=== PATIENT | male | born 1985 | race Caucasian/White ===

== ENCOUNTER → 2018-11-12 | Outpatient (CLI) | payer OTHER ==
--- NOTE | 2018-11-21 00:36 | ECWPNPC ---
PATIENT NAME: ALLY MATTSON : 1985 GENDER: MALE VISIT DATE: 11/12/2018 DISCHARGE DATE: 11/12/18 1549 VISIT LOCKED DATE TIME: PHYSICIAN: STEPHANI HAYS MD RESOURCE: STEPHANI HAYS MD REASON FOR APPOINTMENT 1. ABD/R GROIN HISTORY OF PRESENT ILLNESS PAIN SCREENING: PATIENT HAS A COMPLAINT OF ACUTE OR CHRONIC PAIN :YES 33 YEAR OLD MALE PATIENT WITH A HISTORY OF CHRONIC RIGHT INGUINAL PAIN. THE PATIENT DESCRIBES THE PAIN TENDER, SHARP, STABBING, SHOOTING, AND CONTINUOUS WITH A PAIN SCORE OF 4-10/10 DEPENDING ON PHYSICAL ACTIVITY. THE PATIENT SAYS THAT HE HAS HAD THIS PAIN FOR MANY YEARS. THE PATIENT SAYS HE HAS RECEIVED INJECTIONS IN THE PAST THAT HAVE GIVEN SEVERAL MONTHS OF GOOD PAIN RELIEF. THE PATIENT SAYS THAT ANY KIND OF STRENUOUS ACTIVITY CAUSES HIS PAIN TO WORSEN. PATIENT DENIES UNEXPLAINABLE WEIGHT LOSS, FEVER, CHILLS, NEW CHANGES ON HIS URINARY OR BOWEL CONTROL. FALL RISK SCREENING: SCREENING :NO FALLS REPORTED IN THE LAST YEAR CURRENT MEDICATIONS TAKING ALEVE 220 MG TABLET 2 TABLET WITH FOOD OR MILK NEEDED ORALLY EVERY 12 HRS TAKING IBUPROFEN 200 MG TABLET 1 TABLET WITH FOOD OR MILK NEEDED ORALLY THREE TIMES A DAY MEDICATION LIST REVIEWED AND RECONCILED WITH THE PATIENT PAST MEDICAL HISTORY ABD AND RIGHT GROIN PAIN ALLERGIES N.K.D.A. SURGICAL HISTORY DENIES PAST SURGICAL HISTORY FAMILY HISTORY FATHER: ALIVE, PROSTATE CANCER MOTHER: ALIVE, HEALTHY SIBLINGS: ALIVE, SISTER-HEALTHY 2DAUGHTER(S) - HEALTHY. SOCIAL HISTORY GENERAL: TOBACCO USE ARE YOU A:FORMER SMOKER HOW LONG HAS IT BEEN SINCE YOU LAST SMOKED?1-5 YEARS OTHERS AT HOME: SPOUSE, CHILDREN. EDUCATION LEVEL OF EDUCATION:NOT FINISHED COLLEGE DIET: REGULAR. LANGUAGE LANGUAGES SPOKEN:ETHIOPIAN DOMESTIC VIOLENCE DO YOU FEEL SAFE IN YOUR ENVIRONMENT?YES NEW PATIENT PAIN DIARY PATIENT DESCRIBES PAIN :HAVE IT ALL THE TIME, SHARP, STABBING, TENDER, SHOOTING HAS DULL PAIN ALL THE TIME BUT THE INTENSITY CHANGES THROUGH OUT THE DAY FROM 0-10, WHAT LEVEL IS YOUR PAIN TODAY?1 PRECIPITATING FACTORS HIKING WITH WT BEARING, RUNNING AND SOMETIMES WALKING OR ANYTHING THAT INVOLVES WEIGHTS. COUGHING OR SNEEZING ALLEVIATING FACTORS REST IMPACT ON FUNCTION SLOWS HIM DOWN AND SOMETIMES UNABLE TO DO THINGS THAT HE WANT TO, LIKE GO FOR A RUN RECREATIONAL DRUG USE DRUG USE?NO EXERCISE: VARITY-RUNNING, WALKING, HIKING. LEARNING BARRIERS / SPECIAL NEEDS BARRIERS TO LEARNING?NO HEARING IMPAIRED?NO VISION IMPAIRED?NO COGNITIVELY IMPAIRED?NO READINESS TO LEARN?YES LEARNING PREFERENCES?YES :TAPES/VIDEOS, DEMONSTRATION/VERBAL INSTRUCTION LEARNING CAPABILITIES PRESENT?YES EMOTIONAL BARRIERS?NO SPECIAL DEVICES?NO INSPECTOR PAWNSHOP DETAIL NEEDED?NO PAIN CLINIC PFS, CLERGY, PUBLIC HEALTH REFERRALS HAS THE PATIENT BEEN EDUCATED REGARDING HIS/HER PLAN OF CARE?YES HAS THE PATIENT BEEN EDUCATED REGARDING PAIN, THE RISK FOR PAIN, THE IMPORTANCE OF EFFECTIVE PAIN MANAGEMENT, AND THE PAIN ASSESSMENT PROCESS?YES LATEX QUESTIONNAIRE LATEX ALLERGY : HAVE YOU EVER DEVELOPED ANY TYPE OF REACTION AFTER HANDLING LATEX PRODUCTS SUCH RUBBER GLOVES, CONDOMS, DIAPHRAGMS, BALLOONS, SOCKS, OR UNDERWEAR?NO LATEX ALLERGY : HAVE YOU EVER DEVELOPED ANY TYPE OF REACTION DURING OR AFTER DENTAL APPOINTMENT, VAGINAL/RECTAL EXAMINATION, SURGICAL PROCEDURE, OR ANY OTHER EXPOSURE?NO LATEX RISK : HAVE YOU EVER HAD ANY DIFFICULTY BREATHING OR HIVES AFTER EATING OR HANDLING ANY FRUITS, OR VEGETABLES; SUCH KIWI, BANANAS, STONE FRUITS, OR CHESTNUTSNO LATEX RISK : DO YOU HAVE A PREVIOUS PERSONAL HISTORY OF MORE THAN NINE SURGERIES, SPINA BIFIDA, OR REPEATED CATHERTIZATIONS? NO LATEX RISK : ARE YOU FREQUENTLY EXPOSED TO LATEX PRODUCTS IN YOUR OCCUPATION?NO DATE ASKED : 11/12/2018 CAFFEINE CAFFEINE USE?YES HOW OFTEN AND HOW MUCH? 3-[address] LAUREANO/DAY. HAS BEEN TRYING TO CUT THE SUGAR OUT SO HASN'T HAD ANY FOR THE PAST 1- 1 1/2 WEEKS ADVANCE DIRECTIVE ADVANCE DIRECTIVE DISCUSSED WITH PATIENT:YES 11/12/18 PT. STATES HE HAS A LIVING WILL. HE DECLINES INFORMATION ON HCP AT THIS TIME. TAOIST [id number] MANDAEN MARITAL STATUS: . ALCOHOL SCREENING DID YOU HAVE A DRINK CONTAINING ALCOHOL IN THE PAST YEAR?NO POINTS0 INTERPRETATIONNEGATIVE OCCUPATION: ACTIVE . HOSPITALIZATION/MAJOR DIAGNOSTIC PROCEDURE DENIES PAST HOSPITALIZATION REVIEW OF SYSTEMS REVIEWED BY: PROVIDER: STEPHANI HAYS MD . CONSTITUTIONAL: ANY CHANGE IN YOUR MEDICAL CONDITION? NO . CHILLS NO . FEVER NO . INFECTION: DO YOU HAVE NEW INFECTIONS? NO . DO YOU HAVE HISTORY OF MRSA? NO . MUSCULOSKELETAL: ANY NEW PATTERNS OF PAIN OR NUMBNESS? YES, FROM WHEN IT INITIATED IN AUGUST IT HAS INCREASED AND IN THE PAST WEEK IT HAS DECREASED. . SYTEMIC LUPUS NO . GASTROENTEROLOGY: ANY NEW CHANGE IN BOWEL CONTROL? NO . BARRETTS ESOPHAGUS NO . CIRRHOSIS NO . HEPATITIS NO . LIVER FAILURE NO . ACID REFLUX NO NOT OFFICIALLY DIAGNOSED BUT DEPENDING ON WHAT HE EATS HE MAY HAVE PROBLEMS . UNEXPLAINED WEIGHT LOSS NO . GENITOURINARY: ANY NEW CHANGE IN BLADDER CONTROL? NO . IS THERE A CHANCE YOU COULD BE ? NO . HEMATOLOGY/LYMPH: DO YOU TAKE ANY BLOOD THINNERS? (FOR EXAMPLE- COUMADIN, PLAVIX, AGGRENOX, PLATEL, PRADAXA, OR XARELTO) NO . WHEN WAS YOUR LAST DOSE? DATE: TIME: . LOW PLATELET COUNT NO . SICKLE CELL DISEASE NO . VON WILLIEBRANDS NO . FACTOR V LEIDEN NO . THALLASEMIA NO . ANEMIA NO . EASY BRUISING NO . NEUROLOGY: HAVE YOU FALLEN IN THE PAST 12 MONTHS? NO . ANY NEW EXTREMITY NUMBNESS OR WEAKNESS? NO . HEAD INJURY NO . DEMENTIA NO . CEREBRAL PALSY NO . MULTIPLE SCLEROSIS NO . DIZZINESS NO . HEADACHE NO . STROKES NO . VERTIGO NO . CARDIOLOGY: DO YOU HAVE A PACEMAKER OR DEFIBRILLATOR? NO . ANGINA NO . HEART ATTACK NO . HEART SURGERY NO . CONGESTIVE HEART FAILURE/FLUID OVERLOAD NO . CHEST PAIN NO . HIGH BLOOD PRESSURE NO . IRREGULAR HEART BEAT NO . RESPIRATORY: HAVE YOU BEEN SICK IN THE PAST WEEK? NO . FEVER NO . FLU LIKE SYMPTOMS? NO . CPAP NO . BYPAP NO . ASTHMA NO . EMPHYSEMA NO . CHRONIC LUNG DISEASES NO . SHORTNESS OF BREATH ON EXERTION YES, HAS HAD FOR YEARS . COUGH NO . SNORING YES . INTEGUMENTARY: DO YOU HAVE ANY RASHES OR OPEN SORES? NO . ALLERGIC/IMMUNO: ARE YOU ALLERGIC TO IV DYE? NO . ANY NEW ALLERGIES? NO . PSYCHIATRIC: DO YOU HAVE THOUGHTS OF HURTING YOURSELF OR SOMEONE ELSE? NO . ARE YOU ABUSED, NEGLECTED, OR IN AN UNSAFE ENVIRONMENT? NO . ENDOCRINOLOGY: ARE YOU DIABETIC? NO . THYROID DISORDER NO . OTHER: DO YOU NEED ANY PRESCRIPTIONS? NO . IF YES, PLEASE LIST: ____ . ANY NEW PROBLEMS WITH YOUR MEDICATIONS? NO . WHEN DID YOU LAST EAT? ____ . WHEN DID YOU LAST DRINK? ____ . WHAT DID YOU LAST DRINK? ____ . NAME OF PERSON DRIVING YOU HOME? ____ . DO YOU HAVE ANY OTHER QUESTIONS OR CONCERNS YES, PAIN IN LOWER RIGHT ABDOMEN DOWN INTO GROIN USUAL LIGHT PAIN WITH OCCASSIONAL SHARP PAIN-OCCURS WITH LIFTING WEIGHT, COUGHING, SNEEZING AND SOMETIMES WALKING . VITAL SIGNS WT 191.4 LBS, HT 70 IN, BMI 27.46 INDEX, BP 120/80 MM HG, HR 62 /MIN, RR 16 /MIN, TEMP 97.8 F, OXYGEN SAT % 98%, SAFE IN ENV? (Y/N) Y, NA INITIALS HI 13:52, REVIEWED BY: AD. EXAMINATION GENERAL EXAMINATION: PATIENT IS ALERT O X 3 AND COOPERATIVE. LUNGS CLEAR, TO AUSCULTATION. HEART: NO MURMURS OR GALLOPS; FACIAL CRANIAL NERVES ARE GROSSLY NORMAL. GOOD SYMMETRY OF FACIAL MUSCLE MOVEMENT. NORMAL VISUAL WEISS. 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 MOVING THE RIGHT HIP DOES NOT INCREASE PAIN. MRI OF THE RIGHT HIP DONE N 10/24/2018 IS SHOWING A LABRAL TEAR. 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 MATTSON'S PAIN MANAGEMENT CASE. DUE TO THE ILIOINGUINAL NEURALGIA, I WOULD LIKE TO MOVE FORWARD WITH A RIGHT ILIOINGUINAL NERVE BLOCK. WE DISCUSSED THE BENEFITS, RISKS, AND ALTERNATIVES OF THE INJECTION AND THE PATIENT WOULD LIKE TO PROCEED. THE PATIENT IS ALSO A CANDIDATE FOR A RIGHT GENITOFEMORAL NERVE BLOCK, SO I WILL REFER HIM TO [facility]ANUET FOR THAT INJECTION. THE PATIENT WILL FOLLOW UP A FEW WEEKS AFTER THE INJECTION. INSTRUCTIONS WERE GIVEN, QUESTIONS WERE ANSWERED, PATIENT REPORTS UNDERSTANDING AND AGREES WITH THE PLAN. I, GEORGIA DALEY, DOCUMENTED THE ABOVE INFORMATION ACTING A SCRIBE FOR DR. HAYS. I HAVE REVIEWED THE ABOVE DOCUMENT, WRITTEN BY GEORGIA ESPINOZA AND I VERIFY THAT IT IS ACCURATE. DEAR DR. MILLS:THANK YOU FOR YOUR KIND REFERRAL OF MR. MATTSON. IF YOU WANT TO DISCUSS HIS CASE WITH ME PLEASE CALL ME AT THE PAIN CENTER AT [phone]. SINCERELY,STEPHANI HAYS, [facility] . PREVENTIVE MEDICINE PAIN CLINIC TEACHING: PROCEDURE TEACHING PRE-PROCEDURE INSTRUCTIONS REVIEWED WITH PT. WRITTEN INFORMATIOIN REGARDING PROCEDURE PROVIDED.. PROCEDURE CODES FA211 ESTABILISHED PATIENT [facility] CHARGE G8427 CURRENT MEDS W/DOSAGES DOCUMENTED G8730 PAIN ASSESS POS TOOL F/U PLAN DOC DISPOSITION & COMMUNICATION FOLLOW UP REQUESTING AUTH ELECTRONICALLY SIGNED BY STEPHANI HAYS MD, MD ON 11/20/2018 AT 03:45 PM EDT DISCLAIMER : THIS IS A VISIT SUMMARY EXTRACTED FROM THE [employer] CHART. IT IS NOT A COPY OF THE [employer] PROGRESS NOTE. MTDD
== END ==
LOC: M PAIN 14:00
PROVIDERS: ATTEND Anesthesiology
DX: G57.91 Unspecified mononeuropathy of right lower limb (principal); G58.8 Other specified mononeuropathies; Z87.891 Personal history of nicotine dependence; Z79.1 Long term (current) use of non-steroidal anti-inflammatories (NSAID)

== ENCOUNTER → 2018-12-20 | Outpatient (CLI) | payer OTHER ==
--- NOTE | 2018-12-20 10:22 | REP ---
Clinical: Hernia. Technique: Real time rico scale ultrasound examination using linear high frequency transducer. Findings: Directed ultrasound examination of the right groin demonstrates moderate fat containing inguinal hernia. Peritoneal defect measures 16.4 mm on normal respiration and extends to 19.7 mm on Valsalva. Hernia is nonreducible no associated bowel herniation is appreciated. Impression: Fat containing right inguinal hernia. Electronically Signed by Abhijit Miguel MD 12/20/2018 10:13 A
== END ==
LOC: M RAD 09:39
PROVIDERS: ATTEND Surgery
DX: K40.90 Unilateral inguinal hernia, without obstruction or gangrene, not specified as recurrent (principal)

== ENCOUNTER 2019-02-11 05:54 | Day surgery (SDC) | payer OTHER ==
[~2019-02-11] VITALS: Ht 175.3 cm; Wt 85.3 kg
[~2019-02-11 05:54] MED LIST: IBUP-1022 PO; NAPR220C14 PO
[2019-02-11] MEDS ORDERED: LR 1,000 ML IV ONE (06:00)
[2019-02-11] MEDS ORDERED: ceFAZolin SOD 2 GM in IV 1 EA IV ONE (06:00)
[2019-02-11] MEDS ORDERED: BUPIVACAINE/EPIN 0.25% 30 ML VIAL As Ordered ONE (06:58)
[2019-02-11] MEDS ORDERED: fentaNYL 250 MCG/5 ML INJECTION (J3010) As Ordered ONE (07:12)
[2019-02-11] MEDS ORDERED: PROPOFOL 200 MG/20 ML VIAL As Ordered ONE (07:13)
[2019-02-11] MEDS ORDERED: LIDOCAINE 2% INJ 100 MG/5 ML SDV (FOR ANES.) As Ordered ONE (07:13)
[2019-02-11] MEDS ORDERED: dexameTHASONE 4 MG/ML 1ML VIAL (J1100) As Ordered ONE (07:13)
[2019-02-11] MEDS ORDERED: MIDAZOLAM INJ 2 MG/2 ML VIAL (J2250) As Ordered ONE (07:13)
[2019-02-11] MEDS ORDERED: ONDANSETRON 4MG/2ML VIAL (J2405) As Ordered ONE ×2 (07:13→09:45)
[2019-02-11] MEDS ORDERED: ROCURONIUM BROMIDE 50 MG/5 ML VIAL As Ordered ONE (07:13)
[2019-02-11] MEDS ORDERED: ACETAMINOPHEN 1000MG 100ML IV BTL (OFIRMEV) (J0131 PER 10MG) As Ordered ONE (08:14)
[2019-02-11] MEDS ORDERED: SUGAMMADEX SODIUM 500 MG/5 ML VIAL (BRIDION) As Ordered ONE (08:16)
[2019-02-11] MEDS ORDERED: KETOROLAC 60 MG/2 ML VIAL (J1885) As Ordered ONE (08:16)
[2019-02-11] MEDS ORDERED: PERCOCET 5MG/325MG TAB As Ordered ONE ×2 (09:45→09:46)
[2019-02-11] MEDS ORDERED: LACRILUBE (AKWA TEARS) OPHTH OINT 3.5 GM As Ordered ONE (09:48)
[2019-02-11] MEDS ORDERED: LR 1,000 ML IV SCH (10:00)
[2019-02-11] MEDS ORDERED: METOCLOPRAMIDE INJ 10MG/2ML VIAL (J2765) IV PRN (10:00)
[2019-02-11] MEDS ORDERED: fentaNYL 100 MCG/2 ML INJECTION (J3010) IV PRN (10:00)
[2019-02-11] MEDS ORDERED: PERCOCET 5MG/325MG TAB PO PRN (10:00)
[2019-02-11] MEDS ORDERED: ONDANSETRON 4MG/2ML VIAL (J2405) IV PRN (10:00)
[2019-02-11] MEDS ORDERED: NORCO, ANEXSIA 5/325MG TABLET (HYDROcodone/ACETAMINOPHEN) PO PRN (10:00)
[2019-02-11 11:55] VITALS: BP 129/80
--- NOTE | 2019-02-12 07:56 | RO ---
DATE OF PROCEDURE: 02/11/2019 PREOPERATIVE DIAGNOSIS: Right inguinal hernia and umbilical hernia. POSTOPERATIVE DIAGNOSIS: Right inguinal hernia and umbilical hernia. PROCEDURES: Robotic repair of both the right inguinal and umbilical hernia. SURGEON: Dr. Neri Escobar. ENAMEL SHADER: NORA Gauthier ANESTHESIA: General. ESTIMATED BLOOD LOSS: 5 mL COMPLICATIONS: None. INDICATIONS FOR PROCEDURE: The patient 33-year-old male who presents with right groin bulge and pain found to have a large right inguinal hernia. Recommendation was to proceed with robotic repair of that as well as a small umbilical hernia. Risks and benefits of the procedure not limited but including bleeding, infection, hernia recurrence, hernia formation, damage to surrounding structures, need for further surgery were discussed in detail with the patient and informed was obtained, procedure was planned. DESCRIPTION OF PROCEDURE: The patient brought back to operating room 7. After sufficient sedation the abdomen was sterilely prepped and draped. Next time-out was done to confirm proper patient, proper procedure. Following that 8 mm incision made in the upper abdomen just left of the xyphoid. The Veress needle was inserted and t he abdomen was insufflated 2 mmHg. Next, the Veress needle was removed and an 8 mm robotic OptiView port was used to gain access to the abdomen. Once the abdomen was entered another 8 mm port was placed in the right upper abdomen and another 8 mm port in the left upper abdomen. The ports were then connected to the robot. The patient was placed at 15 degrees Trendelenburg. Starting in the right groin, the peritoneum was incised in a curved fashion overlying the inguinal canal. Preperitoneal space was dissected medially and laterally and then circumferentially around the large hernia sac. The hernia sac was dissected completely free from all the cord structures and reduced back posteriorly as well as a very large cord lipoma that was removed. Once both those were completed the 3D Max light medium mesh was placed in the right preperitoneal space and sutured to the pubic symphysis with #2-0 Vicryl suture. The peritoneum was then closed over top of the mesh using a running #2-0 V-Loc. Once that was completed the needles were removed from the abdomen. Next at the umbilicus, a preperitoneal incision was made into the peritoneum superior to the umbilicus horizontally. The preperitoneal space was dissected free around the umbilicus and the hernia sac was completely reduced. Once that was completed, an 0 Stratafix was used to reapproximate the fascia and primarily closed the hernia. The peritoneum was then closed with another #2-0 V-Loc. The needles were removed from the abdomen and the abdomen was desufflated, ports were removed. Skin incisions closed #4-0 Vicryl subcuticular sutures. The abdomen cleaned and dried and Steri-Strips, 4x4 and tape were applied thus ending procedure.
== END 2019-02-11 12:10 | disposition home or self-care (01) ==
LOC: M SDC 05:54
PROVIDERS: ATTEND Surgery
DX: K40.90 Unilateral inguinal hernia, without obstruction or gangrene, not specified as recurrent (principal); K42.9 Umbilical hernia without obstruction or gangrene; D17.6 Benign lipomatous neoplasm of spermatic cord; Z87.891 Personal history of nicotine dependence
CPT/HCPCS: 49650; 49652; C1781; J0131; J0690; J1100; J1885; J2250; J2405; J3010